=== PATIENT | female | born 1970 | race Two or more races ===

== ENCOUNTER 2021-08-20 10:39 | Outpatient (REF) | payer MEDICAID, SELFPAY ==
--- NOTE | ~2021-08-20 | MM_ITS ---
EXAMINATION: MM DIAGNOSTIC DIGITAL BREAST TOMOSYNTHESIS, BILATERAL US DIAGNOSTIC ULTRASOUND BREAST, LEFT CLINICAL INFORMATION: Due for yearly. Patient notes left breast pain lateral aspect. No palpable mass or discharge. The lifetime risk of breast cancer based on the Tyrer-Cuzick Model is 7%. COMPARISON: Mammography: 04/18/2016, 03/15/2015 TECHNIQUE: Digital breast tomosynthesis is performed in both the craniocaudal and mediolateral oblique views along with computer-aided detection (CAD). Synthesized 2D images are generated from the tomosynthesis. Additional spot right MLO and standard right ML views are obtained. Ultrasound left breast is targeted to the outer breast 12:00 through 6:00 position. Grayscale imaging and color Doppler are performed without and with harmonics. FINDINGS: The breasts are heterogeneously dense, which may obscure small masses (ACR BI-RADS breast composition Category c). Parenchymal pattern is similar to prior exams. There is no interval mass or architectural abnormality or developing density. Low right axillary tail node is stable. There are no abnormal calcifications. The skin contours are smooth. There is no skin thickening or coarsening of the Max's ligaments. No significant changes from prior exams. Ultrasound demonstrates no cystic or solid mass or architectural abnormality. No focal duct ectasia. Results are discussed with the patient at time of visit. MM/MM tomosynthesis diagnostic BI IMPRESSION: No mammographic evidence of malignancy or focal inflammatory changes. Unremarkable targeted left breast ultrasound. ASSESSMENT: BI-RADS 2: Benign RECOMMENDATION: 1. Patient's left breast pain should be managed based on the clinical impression. 2. Otherwise, routine annual screening mammography. This patient's information was entered into a reminder system with a target due date for their next mammogram.
== END 2021-08-20 10:40 | disposition home or self-care (01) ==
LOC: HO.MAMMO 10:39
PROVIDERS: Visit Provider Internal Medicine
DX: N64.4 Mastodynia (principal)
CPT/HCPCS: 76642; 77062; 77066

== ENCOUNTER → 2022-03-04 21:13 | Outpatient (REF) | payer MEDICAID, SELFPAY | LOC: HO.SL 21:13 | PROVIDERS: PCP Internal Medicine; Visit Provider Internal Medicine | DX: R06.83 Snoring (principal) | CPT/HCPCS: 95810 ==

== ENCOUNTER 2023-10-06 12:56 | Outpatient (AMB) | payer MEDICAID, SELFPAY ==
[2023-10-06 13:01] VITALS: BP 110/58; BMI 27.5
--- NOTE | 2023-10-06 13:01 | MHC.OFFVIS ---
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 Last co testing was in 02/20 was negative, last mammogram was BI-RADS 2 in 08/25 PENDING SALE TO [facility] Medical History Asthma High blood pressure Depression Anxiety Surgical History Hx of section Hx of tonsillectomy Hx of tubal ligation History of surgery on right wrist History of throat surgery Family History Maternal Aunt Breast cancer Maternal Aunt Breast cancer Maternal Uncle Colon cancer Social History Patient Tobacco Use Status: Current everyday Tobacco user Cigarettes Per Day: 10 Female Reproductive History Menstrual Age of Menarche: 16 control method: permanent sterilization Total pregnancies: 6 Full term: 5 Number of Living Children: 5 Multiple births: 1 Date of last pap smear: 02/07/19 (negative) History of abnormal pap smear: Yes (2013 2012 2011 ASCUS) Date of Mammogram: 08/20/21 Review of Systems Const All systems reviewed & are unremarkable except as noted in HPI and below Physical Exam Vital Signs: Last Vital Signs BP 110/58 L 10/06/23 13:01 BMI result Body Mass Index 27.5 General: Yes no CVA tenderness External Female Exam: normal external appearance and normal appearance of the urethra Speculum Exam - Vagina: normal appearance of the vagina (Atrophic vaginitis looking), normal palpation, no lesions and no masses Speculum Exam - Cervix: normal appearance of the cervix, normal palpation, no lesions, no masses and nontender Bimanual exam- vagina & uterus: normal bimanual exam, normal palpation, uterine size normal, normal palpation, uterine shape normal, No Cervical tenderness present and non-tender Bimanual Exam- Adnexa, other: normal adnexae Back/Spine/Pelvis Back: no CVA tenderness Assessment & Plan Assessment & Plan (1) Postmenopausal bleeding: Code(s): N95.0 - Postmenopausal bleeding Plan: Mammogram ordered. Discussed with the patient the differential diagnosis of post menopausal bleeding with normal pelvic exam including but not limited to, endometrial hyperplasia, cancer, polyps and other causes; co testing not indicated,, recommended ultrasound to measure the endometrial stripe; discussed with the patient that if the endometrial thickness is 4 mm or less the negative predictive value of endometrial pathology is 99%, otherwise If endometrial thickness is more than 4 mm will proceed with endometrial sampling versus hysteroscopy D&C polypectomy depending on the ultrasound findings. Instructed the patient to schedule an ultrasound follow-up appointment in 2 weeks. All questions answered, the patient verbalized understanding and agreed with the plan. (2) Atrophic vaginitis: Code(s): N95.2 - Postmenopausal atrophic vaginitis Plan: Discussed with the patient different options of treatment for atrophic vaginitis including systemic HRT is versus vaginal estrogen, will check mammogram, and rule out endometrial pathology as a cause of postmenopausal bleeding and treat accordingly (3) Hot flashes: Code(s): R23.2 - Flushing Plan: Discussed with the patient the options of treatment of hot flashes including hormonal replacement therapy, all the pros, cons, risks and benefits (benefits= prevention of hot flashes, atrophic vaginitis, osteoporosis, decrease colon ca risk; also discussed with the patient the risks of LA, Breast ca, DVT, PE, Strokes). In addition, discussed with the patient non hormonal treatment options for hot flashes treatment in surgical menopausal patient. will check mammogram, and rule out endometrial pathology as a cause of postmenopausal bleeding and treat accordingly Orders: Orders MM screening mammo BI Today Z12.31 - Encounter for screening mammogram for malignant neoplasm of breast US pelvic and transvaginal Today N95.0 - Postmenopausal bleeding Coding Level of Care Code Est Pt Level 3 (48711) Diagnoses Postmenopausal bleeding N95.0 Atrophic vaginitis N95.2 Hot flashes R23.2
== END 2023-10-06 14:15 | disposition home or self-care (01) ==
LOC: HO.HWS 12:56
PROVIDERS: PCP Internal Medicine; Visit Provider Obstetrics & Gynecology
DX: N95.0 Postmenopausal bleeding (principal); N95.2 Postmenopausal atrophic vaginitis; R23.2 Flushing
CPT/HCPCS: 99213

== ENCOUNTER 2023-10-06 12:56 | Outpatient (REF) | payer MEDICAID, SELFPAY ==
[2023-10-07 14:51] LABS: CT PCR NOT DETECTED (Not Detect.); NG PCR NOT DETECTED (Not Detect.)
== END 2023-10-06 12:57 | disposition home or self-care (01) ==
LOC: HO.LNP 12:56
PROVIDERS: PCP Internal Medicine; Visit Provider Obstetrics & Gynecology
DX: N95.0 Postmenopausal bleeding (principal); N95.2 Postmenopausal atrophic vaginitis; R23.2 Flushing; Z11.3 Encounter for screening for infections with a predominantly sexual mode of transmission
CPT/HCPCS: 0353U; 99212

== ENCOUNTER 2023-10-27 12:57 | Outpatient (REF) | payer MEDICAID, SELFPAY ==
--- NOTE | ~2023-10-27 | US_ITS ---
EXAMINATION: US PELVIS COMPLETE TRANSVAGINAL PELVIC ULTRASOUND: CLINICAL INFORMATION: Postmenopausal bleeding COMPARISON: None TECHNIQUE: Transabdominal imaging initially performed. For more definitive evaluation of the endometrium and ovaries, transvaginal technique was employed. FINDINGS: Uterus is anteverted measuring 6.4 x 3.9 x 4.6 cm. Myometrium is heterogeneous. Visualized endometrium measures 0.4 cm. Nabothian cysts seen. Right ovary was not seen. The left ovary measures 2.2 x 1.3 x 1.7 cm for a volume of 2.6 mL. Punctate calcifications identified within the left ovary. There is no pelvic free fluid. US/US pelvic and transvaginal IMPRESSION: Patient presenting with postmenopausal bleeding. 4 mm endometrium and heterogeneous myometrium. Nonvisualization right ovary.
== END 2023-10-27 12:58 | disposition home or self-care (01) ==
LOC: HO.US 12:57
PROVIDERS: PCP Internal Medicine; Visit Provider Obstetrics & Gynecology
DX: N95.0 Postmenopausal bleeding (principal)
CPT/HCPCS: 76830; 76856

== ENCOUNTER → 2023-11-09 13:30 | Outpatient (BNV) | payer MEDICAID, SELFPAY | PROVIDERS: PCP Internal Medicine; Visit Provider Radiology Diagnostic Radiology | DX: Z12.31 Encounter for screening mammogram for malignant neoplasm of breast (principal) | CPT/HCPCS: 77063; 77067 ==

== ENCOUNTER 2023-11-09 13:39 | Outpatient (REF) | payer MEDICAID, SELFPAY ==
--- NOTE | ~2023-11-09 | MM_ITS ---
EXAMINATION: MM SCREENING DIGITAL BREAST TOMOSYNTHESIS, BILATERAL CLINICAL INFORMATION: Screening. Asymptomatic. COMPARISON: Mammography: This study is compared with prior exams dating back to 2016. TECHNIQUE: Digital breast tomosynthesis is performed in both the craniocaudal and mediolateral oblique views along with computer-aided detection (CAD). Synthesized 2D images are generated from the tomosynthesis. FINDINGS: There are scattered areas of fibroglandular density (ACR BI-RADS breast composition Category b). There are no significant masses, abnormal calcifications, or other abnormalities. There is a coarsely calcifying, benign, 13 mm mass in the upper outer quadrant of the left breast at an anterior depth. 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 MM/MM tomosynthesis screening BI IMPRESSION: No mammographic evidence of malignancy. ASSESSMENT: BI-RADS BI-RADS 2 - Benign Findings RECOMMENDATION: Routine annual mammography screening. 1 year F/U This examination should not preclude the clinical evaluation of a suspicious palpable abnormality. This patient's information was entered into a reminder system with a target due date for their next mammogram.
== END 2023-11-09 13:40 | disposition home or self-care (01) ==
LOC: HO.MAMMO 13:39
PROVIDERS: PCP Internal Medicine; Visit Provider Obstetrics & Gynecology
DX: Z12.31 Encounter for screening mammogram for malignant neoplasm of breast (principal)
CPT/HCPCS: 77063; 77067

== ENCOUNTER 2023-11-16 11:00 | Outpatient (AMB) | payer MEDICAID, SELFPAY ==
[2023-11-16 11:07] VITALS: BP 126/70; BMI 27.5
--- NOTE | 2023-11-16 11:07 | MHC.OFFVIS ---
Intake Vital Signs 11/16/23 11:07 Height 5 ft 3 in Weight 155 lb BMI 27.5 BP 126/70 Intake Visit Reasons: Ultrasound follow up Portfolio Strategist Required: Yes Portfolio Strategist Language: Ict Help Desk Technician Name: Rusty [id number] Information Interpreted: non-clinical & clinical Allergies tramadol Allergy (Severe, Verified 10/06/23 13:04) Unknown HPI HPI Comments History of Present Illness Details Presenting for follow-up ultrasound regarding postmenopausal bleeding. Pelvic ultrasound showed the following: Uterus is anteverted measuring 6.4 x 3.9 x 4.6 cm. Myometrium is heterogeneous. Visualized endometrium measures 0.4 cm. Nabothian cysts seen. Right ovary was not seen. The left ovary measures 2.2 x 1.3 x 1.7 cm for a volume of 2.6 mL. Punctate calcifications identified within the left ovary. There is no pelvic free fluid. Since then the patient has been having multiple episodes of vaginal spotting PFSH Medical History Asthma High blood pressure Depression Anxiety Surgical History Hx of section Hx of tonsillectomy Hx of tubal ligation History of surgery on right wrist History of throat surgery Family History Maternal Aunt Breast cancer Maternal Aunt Breast cancer Maternal Uncle Colon cancer Social History Patient Tobacco Use Status: Current everyday Tobacco user Cigarettes Per Day: 10 Female Reproductive History Menstrual Age of Menarche: 16 Review of Systems Const All systems reviewed & are unremarkable except as noted in HPI and below Reports as per HPI and Reports no additional complaints GI Reports no additional complaints Reports no additional complaints Physical Exam Vital Signs: Last Vital Signs BP 126/70 11/16/23 11:07 BMI result Body Mass Index 27.5 Assessment & Plan Assessment & Plan (1) Postmenopausal bleeding: Comment: Recurrent Code(s): N95.0 - Postmenopausal bleeding Plan: Discussed with the patient the results of the pelvic ultrasound showing an endometrial stripe thickness of 4 mm. Explained to the patient with an endometrial stripe of 4 mm &/or less, there is a high negative predictive value in detecting endometrial pathology including endometrial hyperplasia, polyps or malignancy. Since the patient has been having recurrent vaginal bleeding/spotting, recommended endometrial biopsy to rule out endometrial pathology including endometrial hyperplasia and/or malignancy. Instructions were given the patient to schedule an EMB appointment within 2 weeks. All questions answered, the patient verbalized understanding Coding Level of Care Code Est Pt Level 3 (78763) Diagnoses Postmenopausal bleeding N95.0
== END 2023-11-16 11:20 | disposition home or self-care (01) ==
LOC: HO.HWS 11:00
PROVIDERS: PCP Internal Medicine; Referring Provider Internal Medicine; Visit Provider Obstetrics & Gynecology
DX: N95.0 Postmenopausal bleeding (principal)
CPT/HCPCS: 99213

== ENCOUNTER → 2023-11-16 11:00 | Outpatient (BNVA) | payer MEDICAID, SELFPAY | PROVIDERS: PCP Internal Medicine; Visit Provider Obstetrics & Gynecology | DX: N95.0 Postmenopausal bleeding (principal) | CPT/HCPCS: 99212 ==

== ENCOUNTER 2023-12-16 12:50 | Outpatient (AMB) | payer MEDICAID, SELFPAY ==
[2023-12-16 13:00] VITALS: BP 116/74; BMI 27.3
--- NOTE | 2023-12-16 13:00 | A.OFFVIS_ITS ---
Intake Vital Signs 12/16/23 13:00 Height 5 ft 3 in Weight 154 lb 5.177 oz BMI 27.3 BP 116/74 Intake Visit Reasons: EMB/DO NOT RS Dock Worker Required: Yes Dock Worker Language: Manager Intelligence Name: Coral ESCAMILLA Information Interpreted: non-clinical & clinical Automobile Mechanic Supervisor: Automobile Mechanic Supervisor Present (Coral ESCAMILLA) Accompanied by: Self / Same As Patient Allergies tramadol Allergy (Severe, Verified 12/16/23 13:08) Unknown Is last menstrual period known: Yes Last menstrual period: 08/02/20 Post menopausal: Yes Patient : No Do you need a note to return to daycare/school/sports/work: Yes (for surgery on thursday) HPI HPI Comments History of Present Illness Details Presenting for EMB for recurrent postmenopausal bleeding. PFSH Medical History Asthma High blood pressure Depression Anxiety Surgical History Hx of section Hx of tonsillectomy Hx of tubal ligation History of surgery on right wrist History of throat surgery Family History Maternal Aunt Breast cancer Maternal Aunt Breast cancer Maternal Uncle Colon cancer Social History Patient Tobacco Use Status: Current everyday Tobacco user Cigarettes Per Day: 10 Female Reproductive History Menstrual Age of Menarche: 16 Date of last menstrual period: 08/02/20 Total pregnancies: 2 Full term: 2 Review of Systems Card Reports as per HPI and Reports no additional complaints Resp Reports as per HPI and Reports no additional complaints GI Reports as per HPI and Reports no additional complaints Reports as per HPI Physical Exam Vital Signs: Last Vital Signs BP 116/74 12/16/23 13:00 BMI result Body Mass Index 27.3 Const General: cooperative, healthy appearing and comfortable Chest Chest palpation & inspection: normal inspection of the chest and normal palpation of entire chest wall Breast/axilla inspection: normal inspection of the breasts and normal inspection of the axillae Breast/axilla palpation: normal palpation of the breasts, normal palpation of the axillae and no axillary lymphadenopathy Resp Effort & Inspection: normal respiratory effort Auscultation: clear to auscultation bilaterally Percussion: percussion normal Cardio Palpation: normal PMI Rate: regular rate Rhythm: regular rhythm Heart sounds: no murmurs and no rubs Peripheral pulses: Peripheral pulses 2+ throughout GI Inspection: Yes normal to inspection Palpation (GI): Soft to palpation, nontender, no guarding, not rigid and No hepatosplenomegaly present Percussion: Yes normal to percussion Auscultation: normal bowel sounds Rectal Exam - Female: deferred Assessment & Plan Assessment & Plan (1) Postmenopausal bleeding: Comment: Recurrent Code(s): N95.0 - Postmenopausal bleeding Plan: EMB attempted but aborted per patient request because of intolerance to pain. Recommended hysteroscopy D&C possible polypectomy/myomectomy. Discussed with the patient the procedure , all benefits and risks including but not limited to inability to complete the procedure , insufficient endometrial tissue for a complete evaluation of the endometrial cavity , bleeding, infection, possible need for blood transfusion with all its risk ( HIV,syphilis, Hepatitis, anaphylaxis shock, others..), injury to bladder, rectum, possible need for laparoscopy/laparotomy or hysterectomy. The patient verbalized understanding and signed the consent. Instructions given the patient to schedule a 2 week postoperative appointment Coding Level of Care Code Est Pt Level 3 (24011) Diagnoses Postmenopausal bleeding N95.0
== END 2023-12-16 14:18 | disposition home or self-care (01) ==
LOC: HO.HWS 12:50
PROVIDERS: PCP Internal Medicine; Visit Provider Obstetrics & Gynecology
DX: N95.0 Postmenopausal bleeding (principal)
CPT/HCPCS: 99213

== ENCOUNTER → 2023-12-16 12:50 | Outpatient (BNVA) | payer MEDICAID, SELFPAY | PROVIDERS: PCP Internal Medicine; Visit Provider Obstetrics & Gynecology | DX: N95.0 Postmenopausal bleeding (principal) | CPT/HCPCS: 99212 ==

== ENCOUNTER 2023-12-18 10:42 | Day surgery (SDC) | payer MEDICAID, SELFPAY ==
[2023-12-18] VITALS (7 sets, daily range): BP systolic 107–117; BP diastolic 55–64; PULSE 57–66; RESP 14–16; TEMP 36.3–36.7; O2SAT 95–97; BMI 28.3
--- NOTE | 2023-12-18 11:20 | HO.ANESPROP2 ---
HPI - Anesthesia Eval Consult details Narrative: 53 yo female patient for D&C, Hysteroscopy, possible polypectomy, possible myomectomy PMFSH Active Problems Active Problems: All Active Problems (Updated 12/18/23 @ 11:20 by Betty Leyva MD) Hot flashes (Acute) Atrophic vaginitis (Acute) Postmenopausal bleeding (Acute) ANA. CPAP recommended per report but patient states was told everything was ok Seizure disorder Anxiety/ Depression HTN Asthma- inhaler prn GERD Hypercholesterolemia Smoker- last cigarette this morning Past Medical History Medical History Hx of seizure disorder Asthma High blood pressure Depression Anxiety Family History Family History Maternal Aunt Breast cancer Maternal Aunt Breast cancer Maternal Uncle Colon cancer Family history of problems with anesthesia: No Surgical History Surgical History Hx of section Hx of tonsillectomy Hx of tubal ligation History of surgery on right wrist History of throat surgery History of Problems with Anesthesia: No Social History Social History Patient Tobacco Use Status: Current everyday Tobacco user Cigarettes Per Day: 5 Use of substances other than those prescribed or required for medical reasons: No Are you DNR?: No Advance Directives: No Advance Directives Information Provided: Yes Meds Allergies Allergy/AdvReac Type Severity Reaction Status Date / Time tramadol Allergy Severe Unknown Verified 12/18/23 11:01 Active Medications: Current Medications Lactated Ringer's (Lr) 1,000 mls @ 50 mls/hr IVCONT .Q20H [facility] Home Medications Medication Instructions Recorded Confirmed Last Taken Type albuterol sulfate 90 mcg/actuation 2 puff inhalation Q6H PRN wheezing 10/06/23 12/18/23 Unknown History aerosol inhaler (Ventolin HFA) amoxicillin 875 mg-potassium 1 tab PO BID 10/06/23 12/18/23 Unknown History clavulanate 125 mg tablet chlorthalidone 25 mg tablet 25 mg PO QAM 10/06/23 12/18/23 Unknown History clonazepam 1 mg tablet 1 mg PO BID 10/06/23 12/18/23 Unknown History escitalopram oxalate 20 mg tablet 20 mg PO QAM 10/06/23 12/18/23 Unknown History famotidine 20 mg tablet 20 mg PO BID PRN acid reflux 10/06/23 12/18/23 Unknown History lisinopril 40 mg tablet 40 mg PO QAM 10/06/23 12/18/23 Unknown History oxycodone 10 mg tablet 10 mg PO Q8H PRN pain 10/06/23 12/18/23 Unknown History pravastatin 20 mg tablet 20 mg PO BID 10/06/23 12/18/23 Unknown History risperidone 2 mg tablet 2 mg PO BEDTIME 10/06/23 12/18/23 Unknown History zolpidem 10 mg tablet 10 mg PO BEDTIME PRN Insomnia 10/06/23 12/18/23 Unknown History levetiracetam 1,000 mg tablet 1,000 mg PO Q12H 12/18/23 12/18/23 Unknown History Exam Height,Weight and Vital Signs: Height 5 ft 2 in Weight 70.307 kg Vital Signs Temp Pulse Resp BP Pulse Ox O2 Del Method 12/18/23 11:31 97.4 F 62 16 107/58 L 95 Room Air Airway Mallampati Class: III (Small mouth) TM Dist: >3cm Neck ROM: Full Loose/Missing/Broken Teeth: No (Teeth discolored- overlapping in front. Denies broken, loose, missing teeth) Heart: RRR Lungs: CTAB Assessment and Plan Assessment Anesthesia Assessment: Anesthesia Plan Discussed and Chart Reviewed Final Anesthetic Review Family History of Problems with Anesthesia: No History of Problems with Anesthesia: No NPO: Yes ASA Class: III Final Preanesthetic Review: No Changes in Pt Med Stat, Meds/Allgs Chart Reviewed, Consent Obtained/Reviewed and Anes Risks/Benef Reviewed Patient Risk: Intermediate Procedure Risk: Low Assessment/Block/Sedation in SS: Assess/Block/Sedation-SS Anesthetic Plan Anesthetic Plan: GA Disposition: Standard PACU
[2023-12-18] MEDS: Lactated Ringers 1,000 ML 50 ML IVCONT (11:40)
--- NOTE | 2023-12-18 11:58 | MHC.SHP ---
Pre-Procedural Eval Section A - 24 Hr Update-Section A only Date of Service: 12/18/23 The patient is an INPATIENT: No Changes since office visit: No Cold of Flu in the past 2 weeks, No New Medical Problems, No Changes in Medication and No Patient answered all questions The patient has been examined within 24 hours of the surgical procedure. The History & Physical has been completed within 30 days and I have reviewed it.: Yes Section B - Complete if H&P > 30 days Chief Complaint: Postmenopausal bleeding Allergies: Allergies Allergy/AdvReac Type Severity Reaction Status Date / Time tramadol Allergy Severe Unknown Verified 12/18/23 11:01 Plan Diagnosis/Plan: Unchanged I have reviewed the history and physical and performed a pertinent physical examination on my patient. No changes have occurred unless specified. Time Spent With Patient Time: Total time managing care of this patient today ____ minutes.
--- NOTE | 2023-12-18 13:07 | PM.OP ---
Brief Operative Note Date of Service: 12/18/23 Pre-op diagnosis: Recurrent postmenopausal bleeding Post-op diagnosis: same (Normal endometrial cavity) Procedure: Hysteroscopy D&C Surgeon: Omari Galaviz MD Anesthesia: GLMA Was an Chemical Engineering Technologist used for this Procedure?: No Estimated blood loss (mL): 0 Pathology: other (Endometrial Scrapping.) Condition: stable Disposition: PACU
--- NOTE | 2023-12-18 13:09 | P.OP_ITS ---
Operative Note Operative Note Date of Service: 12/18/23 Narrative: Preop Diagnosis: Recurrent Post Menopausal bleeding Operation: Diagnostic Hysteroscopy, Dilataion & Curettage Post Op Diagnosis: Normal endometrial cavity QBL: Minimal Anesthesia: GLMA Surgeon: Omari Galaviz MD Sales And Operations Trainee: None Complication: None Pathology: Endometrial Scrapings Procedure: The patient was put in the dorsal lithotomy position, scrubbed, and draped in the usual manner. A sterile speculum was inserted in the patient's vagina. The anterior lip of the cervix was grasped with a single tooth tenaculum. The cervix was dilated up to 5 mm, then the scope was inserted in the patient's uterus. Inspection revealed Normal endometrial cavity. The Myosure Reach device was used; the scope was removed from the endometrial cavity , sharp curettings was carried on with minimal to moderate amount of tissues retrieved. At the end of the procedure, all instruments were taken out of the patient uterine and vaginal cavity. The single tooth tenaculum was removed and homeostasis was assured using pressure,. The patient tolerated the procedure well and was transferred to the PACU in a stable condition.
== END 2023-12-18 14:14 | disposition home or self-care (01) ==
PROVIDERS: PCP Internal Medicine; Visit Provider Obstetrics & Gynecology
PROC: 0UDB8ZZ Extraction of Endometrium, Via Natural or Artificial Opening Endoscopic (ICD-10-PCS; CPT 58558; principal; 2023-12-18 12:40)
DX: N95.0 Postmenopausal bleeding (principal); I10 Essential (primary) hypertension; E78.00 Pure hypercholesterolemia, unspecified; J45.909 Unspecified asthma, uncomplicated; F32.A Depression, unspecified; F41.9 Anxiety disorder, unspecified; G40.909 Epilepsy, unspecified, not intractable, without status epilepticus; G47.33 Obstructive sleep apnea (adult) (pediatric); Z79.899 Other long term (current) drug therapy; Z88.8 Allergy status to other drugs, medicaments and biological substances; Z98.51 Tubal ligation status; Z98.890 Other specified postprocedural states; F17.210 Nicotine dependence, cigarettes, uncomplicated
CPT/HCPCS: 58558; 88305; J1170; J1885; J2405; J2704; J3010

== ENCOUNTER → 2023-12-18 10:42 | Outpatient (BNV) | payer MEDICAID, SELFPAY | PROVIDERS: PCP Internal Medicine; Visit Provider Obstetrics & Gynecology | DX: N95.0 Postmenopausal bleeding (principal) | CPT/HCPCS: 58558 ==

== ENCOUNTER 2023-12-31 14:24 | Outpatient (AMB) | payer MEDICAID, SELFPAY ==
--- NOTE | 2023-12-31 14:29 | MHC.OFFVIS ---
Intake Vital Signs 12/31/23 14:31 Height 5 ft 3 in Weight 154 lb BMI 27.3 BP 108/68 Intake Visit Reasons: post op Cable Stretcher And Tester Required: Yes Cable Stretcher And Tester Language: Medical Administrative Assistant Name: Coral ESCAMILLA Information Interpreted: non-clinical & clinical Accompanied by: Self / Same As Patient Allergies tramadol Allergy (Severe, Verified 12/31/23 14:32) Unknown HPI HPI Comments History of Present Illness Details The patient is presenting post hysteroscopy D&C no complaints minimal vaginal bleeding no feverishness chills or abdominal pain. The pathology showed the following: Endometrium, curettage: Scant superficial strips of benign endometrial and squamous epithelium; blood and fibrin; no atypia identified. PFSH Medical History Hx of seizure disorder Asthma High blood pressure Depression Anxiety Surgical History Hx of section Hx of tonsillectomy Hx of tubal ligation History of surgery on right wrist History of throat surgery Family History Maternal Aunt Breast cancer Maternal Aunt Breast cancer Maternal Uncle Colon cancer Social History Patient Tobacco Use Status: Current everyday Tobacco user Cigarettes Per Day: 5 Female Reproductive History Menstrual Age of Menarche: 16 Review of Systems Const All systems reviewed & are unremarkable except as noted in HPI and below Reports as per HPI and Reports no additional complaints GI Reports no additional complaints Reports no additional complaints Physical Exam Vital Signs: Last Vital Signs BP 108/68 12/31/23 14:31 BMI result Body Mass Index 27.3 Assessment & Plan Assessment & Plan (1) Postmenopausal bleeding: Comment: Recurrent Code(s): N95.0 - Postmenopausal bleeding Plan: Discussed with the patient the intraoperative findings and the results of the pathology of the endometrial scraping. Discussed with the patient the sensitivity, specificity, positive and negative predictive value, of endometrial biopsy in detecting endometrial pathology including but not limited to endometrial hyperplasia, cancer and other pathology; instructed the patient to call in case vaginal bleeding bleeding recurs, the next step will be to proceed with further endometrial sampling evaluation to rule out endometrial pathology. All questions answered and the patient verbalized understanding and agreed with the plan. Coding Level of Care Code Est Pt Level 3 (14293) Diagnoses Postmenopausal bleeding N95.0
[2023-12-31 14:31] VITALS: BP 108/68; BMI 27.3
== END 2023-12-31 14:49 | disposition home or self-care (01) ==
LOC: HO.HWS 14:24
PROVIDERS: PCP Internal Medicine; Visit Provider Obstetrics & Gynecology
DX: N95.0 Postmenopausal bleeding (principal)
CPT/HCPCS: 99213

== ENCOUNTER → 2023-12-31 14:24 | Outpatient (BNVA) | payer MEDICAID, SELFPAY | PROVIDERS: PCP Internal Medicine; Visit Provider Obstetrics & Gynecology | DX: N95.0 Postmenopausal bleeding (principal) | CPT/HCPCS: 99212 ==

== ENCOUNTER 2024-04-28 13:17 | Outpatient (REF) | payer MEDICAID, SELFPAY ==
[2024-04-28 16:04] LABS: MANUAL DIFF FLAG NO
[2024-04-28 16:14] LABS: Basophils Absolute Auto 0.1 X10*3/uL (0.0-0.2); Basophils Percent Auto 0.7 % (0-2); Eosinophils Absolute Auto 0.4 X10*3/uL (0.0-0.4); Eosinophils Percent Auto 4.1 % (0-4); Hematocrit 42.8 % (37.0-47.0); Hemoglobin 14.2 g/dl (12.0-16.0); Imm Gran Abs Auto 0.09 X10*3/uL (0.00-0.03); Imm Gran Pct Auto 0.9 % (0.0-0.4); Lymphocytes Absolute Auto 2.5 X10*3/uL (1.2-4.9); Mean Corpuscular HGB Conc 33.2 g/dl (31.0-35.0); Mean Corpuscular Hemoglobin 29.1 pg (27.0-33.0); Mean Corpuscular Volume 87.7 fL (80.0-98.0); Mean Platelet Volume 10.7 fL (9.4-12.3); Monocytes Absolute Auto 0.7 X10*3/uL (0.1-1.2); Neutrophils Absolute Auto 6.6 x10*3/uL (2.0-8.3); Neutrophils Percent Auto 63.3 % (45-73); Platelet Count 281 X10*3/uL (160-400); Red Blood Count 4.88 X10*6/uL (4.20-5.50); Red Cell Distribution Width 12.1 % (11.0-16.0); White Blood Count 10.4 X10*3/uL (4.8-10.8)
[2024-04-28 16:31] LABS: Alanine Aminotransferase 22 U/L (0-31); Albumin Level 4.1 g/dL (3.5-5.0); Alkaline Phosphatase 111 U/L (39-117); Anion Gap 13 (12-20); Aspartate Amino Transferase 19 U/L (5-31); Bilirubin Direct 0.1 mg/dL (0.0-0.5); Bilirubin Total 0.3 mg/dL (0.0-1.0); Blood Urea Nitrogen 11 mg/dL (9-16); Calcium 9.6 mg/dL (8.4-10.2); Carbon Dioxide 30 mmol/L (22-29); Chloride 104 mmol/L (96-108); Cholesterol 226 mg/dL (<200); Estimated Glomerular Filt Rate > 60; Glucose Random 100 mg/dL (60-115); HDL Cholesterol 46 mg/dL (>40); LDL Cholesterol Calculated 150 mg/dL (<100); Sodium 142 mmol/L (135-145); Total Protein 7.6 g/dL (6.5-8.0); Triglycerides 154 mg/dL (<150)
[2024-04-28 16:47] LABS: TSH reflex Free T4 0.87 uIU/mL (0.32-4.0)
[2024-04-28 16:48] LABS: Estimated Average Glucose 114 mg/dL; Hemoglobin A1c % 5.6 % (<6.0)
== END 2024-04-28 13:18 | disposition home or self-care (01) ==
LOC: HO.HHCL 13:17
PROVIDERS: Visit Provider Internal Medicine
DX: Z00.00 Encounter for general adult medical examination without abnormal findings (principal)
CPT/HCPCS: 36415; 80048; 80061; 80076; 83036; 84443; 85025

== ENCOUNTER 2024-05-03 10:14 | Outpatient (REF) | payer MEDICAID, SELFPAY ==
[2024-05-06 07:34] LABS: TS Negative Control Passed; TS Panel A 0; TS Panel B 0; TS Positive Control Passed; TSpotTB Negative (Negative)
== END 2024-05-03 10:15 | disposition home or self-care (01) ==
LOC: HO.HHCL 10:14
PROVIDERS: Visit Provider Internal Medicine
DX: Z11.1 Encounter for screening for respiratory tuberculosis (principal)
CPT/HCPCS: 36415; 86481

== ENCOUNTER 2024-08-22 16:03 | Outpatient (REF) | payer MEDICAID, SELFPAY ==
[2024-08-26 08:24] LABS: Fentanyl, Ur NEGATIVE; Norfentanyl, Ur NEGATIVE
== END 2024-08-22 16:04 | disposition home or self-care (01) ==
LOC: HO.LNP 16:03
PROVIDERS: Visit Provider Internal Medicine
DX: G89.4 Chronic pain syndrome (principal)
CPT/HCPCS: 80354

== ENCOUNTER 2025-04-05 16:19 | Outpatient (REF) | payer MEDICAID, SELFPAY | END 2025-04-05 16:20 | disposition home or self-care (01) | LOC: HO.HHCLNP 16:19 | PROVIDERS: Visit Provider Internal Medicine | DX: Z79.891 Long term (current) use of opiate analgesic (principal) | CPT/HCPCS: 36415; 80307 ==

== ENCOUNTER 2025-05-05 11:34 | Outpatient (REF) | payer MEDICAID, SELFPAY ==
--- OUTSIDE RECORDS SUMMARY | 2025-05-05 11:37 | XMS_ITS | Encounter Summary ---
Author Organization [employer] Address [address] [place] [address] Care Team Providers Care Open Pit Quarry Supervisor Name Role Phone Paty Rizvi MD Primary Care Provide r Denice Charles PharmD Unavailable [phone] Daniel Plaza PharmD Unavailable [phone] Encounter Details Date Type Department Care Team (Late st Contact Info) Description 05/19/2024 Orders Only [facility] [address] [place] [address] Paty Rizvi MD [address] [place] [address] Allergic rhinitis, unspecified seasonality, unspecified trigger (Primary Dx) Social History Tobacco Use Types Packs/Day Years Used Date Smoking Tobacco: Every Day Cigarettes Passive Smoke Exposure: Current Smokeless Tobacco: Never Alcohol Answer Date Recorded Frequency of Alcohol Consumption Not on file 02/09/2024 Average Number of Drinks Not on file 024 Frequency of Binge Drinking Not on file 04/2024 Score 0 02/09/2024 Depression Answer Date Recorded Patient Health Questionnaire-9 Score 6 02/09/2024 Patient Health Questionnaire-9 Score 6 02/09/2024 Last PHQ-9: Questionnaire Data Not on file 0 02/09/2024 Housing Stability Answer Date Recorded What is your housing situation today? I have [place] 02/02/[address] you li ve. Do you have problems with any of the following? None of the above 02/02/2024 Food Insecurity Answer Date Recorded Within the past 12 months, y ou worried that your food would run out before you got money to buy more: Never True 02/02/2024 Within the past 12 months,th e food you bought just didn't last and you didn't have enough money to get more: Never True Transportation Answer Date Recorded In the past 12 months, has l ack of transportation kept you from medical appts, meetings, work or from getting things needed for daily living? No 02/02/2024 Utilities Answer Date Recorded In the past 12 months, has t he [employer], gas, oil or water company threatened to shut off services in your home? No 02/02/2024 Depression Answer Date Recorded Patient Health Questionnaire-2 Score 1 02/09/2024 Comments Unknown Sex and Gender Information Value Date Recorded Sex Assigned at Female 08/04/2022 10:21 AM EDT Legal Sex Female 10:21 AM EDT Gender Identity Female 08/04/2022 10:21 AM EDT Sexual Orientation Straight 08/04/2022 10 :21 AM EDT documented as of this encounter Plan of Treatment Upcoming Encounters Date Type Department Care Team (Late st Contact Info) Description 05/05/2025 3:00 PM EDT Telemedicine [facility] [address] [place] [phone] Daniel Plaza, MonikD [address] [place] [phone] 05/11/2025 2:30 PM EDT Office Visit [address] [address] Paty Rizvi MD [address] [place] [phone] 07/06/2025 1:30 PM EDT Clinical Support [address] [address] Chio Jones, FARRUKH documented as of this encounter Visit Diagnoses Diagnosis Allergic rhinitis, unspecified seasonality, unspecified trigger- Primary documented in this encounter Additional Health Concerns Assessment Noted Time PHQ-9 Depression Total Score: 6 02/09/20 24 2:02 PM EDT documented as of this encounter Care Teams Open Pit Quarry Supervisor Relationship Specialty Start Date End Date Paty Rizvi MD [address] [place], [place] [phone] PCP - General Family Medicine 06/23/18 Denice Charles, PharmD [address] [place] [address] [phone] Pharmacist Internal Medicine 07/12/24 04/23/25 Daniel Plaza, PharmD [address] [place] [address] [phone] Pharmacist Pharmacy 04/24/25 Cade Geller Jr Reconciling ClerkGuest Attendant 06/22/24 documented as of this encounter
[2025-05-05 14:12] LABS: MANUAL DIFF FLAG NO
[2025-05-05 14:17] LABS: Hematocrit 39.8 % (37.0-47.0); Hemoglobin 13.0 g/dl (12.0-16.0); Imm Gran Abs Auto 0.02 X10*3/uL (0.00-0.03); Imm Gran Pct Auto 0.2 % (0.0-0.4); Lymphocytes Absolute Auto 2.5 X10*3/uL (1.2-4.9); Mean Corpuscular HGB Conc 32.7 g/dl (31.0-35.0); Mean Corpuscular Hemoglobin 29.0 pg (27.0-33.0); Mean Corpuscular Volume 88.8 fL (80.0-98.0); NRBC Abs Auto 0.000 X10*3/uL (0.0-0.012); NRBC Pct Auto 0.0 /100WBC (0.0-0.2); Platelet Count 288 X10*3/uL (160-400); Red Blood Count 4.48 X10*6/uL (4.20-5.50); White Blood Count 8.6 X10*3/uL (4.8-10.8)
[2025-05-05 14:42] LABS: Alanine Aminotransferase 23 U/L (0-31); Albumin Level 4.2 g/dL (3.5-5.0); Alkaline Phosphatase 122 U/L (39-117); Anion Gap 12 (12-20); Aspartate Amino Transferase 25 U/L (5-31); Blood Urea Nitrogen 11 mg/dL (9-16); Calcium 8.9 mg/dL (8.4-10.2); Carbon Dioxide 30 mmol/L (22-29); Chloride 102 mmol/L (96-108); Cholesterol 204 mg/dL (<200); HDL Cholesterol 35 mg/dL (>40); Potassium 4.4 mmol/L (3.3-5.1); Sodium 140 mmol/L (135-145); Total Protein 7.4 g/dL (6.5-8.0); Triglycerides 198 mg/dL (<150)
[2025-05-05 14:53] LABS: Estimated Glomerular Filt Rate > 60
[2025-05-05 15:03] LABS: Hemoglobin A1C 124.4241 umol/L; Total Hemoglobin (HGBA1C) 3438.1565 umol/L
[2025-05-06 03:29] LABS: HIV Num 1 0.07 S/CO (0.00-0.99); ~HepC Num1 0.14 S/CO (0.00-0.79); ~Hepatitis C Antibody Nonreactive (Nonreactive)
== END 2025-05-05 11:35 | disposition home or self-care (01) ==
LOC: HO.HHCL 11:34
PROVIDERS: PCP Internal Medicine; Visit Provider Internal Medicine
DX: Z00.00 Encounter for general adult medical examination without abnormal findings (principal); Z11.4 Encounter for screening for human immunodeficiency virus [HIV]; Z11.59 Encounter for screening for other viral diseases
CPT/HCPCS: 36415; 80053; 80061; 82306; 83036; 84443; 85025; 86803; 87389

== ENCOUNTER 2025-08-03 17:04 | Outpatient (REF) | payer MEDICAID, SELFPAY | END 2025-08-03 17:05 | disposition home or self-care (01) | LOC: HO.LNP 17:04 | PROVIDERS: Visit Provider Internal Medicine | DX: Z79.891 Long term (current) use of opiate analgesic (principal) | CPT/HCPCS: 80307 ==